=== PATIENT | female | born 1940 | race Caucasian/White ===

== ENCOUNTER 2018-04-30 09:51 | Emergency (ER) | payer OTHER ==
[2018-04-30] MEDS: IBUPROFEN 600 MG TAB PO (12:05)
== END 2018-04-30 12:35 | disposition home or self-care (01) ==
LOC: E/R 09:51
DX: M25.512 Pain in left shoulder (principal); E11.9 Type 2 diabetes mellitus without complications; I10 Essential (primary) hypertension; Z79.84 Long term (current) use of oral hypoglycemic drugs
CPT/HCPCS: 73030; 73060; 99283-25